=== PATIENT | female | born 1955 ===

== ENCOUNTER 2021-02-05 21:59 | Inpatient (IN) | payer MEDICARE, OTHER ==
[~2021-02-05] VITALS: Ht 160 cm; Wt 63.0 kg
[~2021-02-05 21:59] MED LIST: IVERMECTIN3 MG PO
[2021-02-05 22:59] VITALS: BP 129/64
[2021-02-05 23:23] LABS: BASOPHILS 0.1 % (0-2); EOSINOPHILS 0 % (0-7); HEMOGLOBIN 13.2 g/dL (12-16); LYMPHOCYTES 6.8 % (15-50); MCH 30.4 pg (26.0-34.0); MCHC 33.9 g/dL (31.0-37.0); MCV 89.7 fL (80.0-100.0); MEAN PLATELET VOLUME 9.2 fL (7.4-10.4); MONOCYTES 5.3 % (2-11); NEUTROPHILS 87.8 % (40-80); PLATELET COUNT 202 10x3/uL (130-400); RBC 4.34 10x6/uL (4.00-5.40); RDW 13.1 % (11.5-14.5); WBC 12.4 10x3/uL (4.8-10.8)
[2021-02-05 23:32] LABS: CALC OSMOLALITY 274 mosm/kg (275-300); CALCIUM 8.9 mg/dL (8.5-10.1); CARBON DIOXIDE 23.4 mmol/L (21.0-32.0); CHLORIDE - SERUM 101 mmol/L (98-107); CREATININE - SERUM 1.1 mg/dL (0.6-1.3); GLUCOSE 133 mg/dL (74-106); POTASSIUM - SERUM 4.1 mmol/L (3.5-5.1); SODIUM 135 mmol/L (136-145); UREA NITROGEN 22 mg/dL (7-18); eGFR NON AFRICAN AMERICAN 52 mL/min (90-120)
[2021-02-05 23:48] LABS: ALBUMIN 2.8 g/dL (3.4-5.0); ALKALINE PHOSPHATASE 107 U/L (30-120); ALT (SGPT) 47 U/L (10-68); BILIRUBIN - TOTAL 0.48 mg/dL (0.2-1.3); CKMB 3.1 U/L (0.0-3.6); CREATINE KINASE 740 UL (21-215); PRO BNP 507 pg/mL (0-125); PROTEIN - SERUM 7.1 g/dL (6.4-8.2)
[2021-02-05 23:49] LABS: TROPONIN-I < 0.017 ng/mL (0.000-0.060)
[2021-02-05 23:55] LABS: SARS-CoV-2 ANTIGEN NEGATIVE- SARS-COV-2 (NEGATIVE)
[2021-02-06] VITALS (8 sets, daily range): BP systolic 110–142; BP diastolic 46–67; BMI 24.6
--- NOTE | 2021-02-06 05:07 | NUR ---
REPORT HANDED OFF FROM TIA MUÑOZ AT THIS TIME.
--- NOTE | 2021-02-06 08:00 | NUR ---
Arrived to unit from ER via w/c in stable condition accompanied by hospital staff, oriented to unit, oriented to room, oriented to bed controls/call light/TV, IV is a triple lumen subclavian central line, line is patent and pulls blood with every port, flushed with sterile saline every shift without difficulty observed, call light/phone/water within reach, no s/s of acute distress observed.
[2021-02-06] MEDS ORDERED: SYMBICORT 80-10.2 GM INH (11:15)
[2021-02-06] MEDS ORDERED: SYNTHROID75 MCG PO (11:16)
[2021-02-06] MEDS ORDERED: VENTOLIN HFA [SP8 GM INH (11:18)
[2021-02-06] MEDS ORDERED: DECADRON4 MG PO (11:20)
[2021-02-06] MEDS ORDERED: DOXYCYCLINE HY100 M2 PO (11:21)
--- NOTE | 2021-02-06 14:20 | NUR ---
[facility] faxed PCR test from yesterday showing pt is + for COVID, notified respiratory, Dr. Flores, and Dr. Nam.
[2021-02-06 17:58] LABS: C-REACTIVE PROTEIN 25.6 mg/dL (0.0-0.9)
--- NOTE | 2021-02-06 19:45 | NUR ---
REPORT RECEIVED. PATIENT IS AAOX4, LYING IN BED ON LEFT SIDE. NO S/S OF DISTRESS OBSERVED, RR EVEN AND UNLABORED ON 4L O2 VIA NC. PIV TO LT FA, SL AND LT WRIST, SL. PATIENT DENIES NEEDS AT THIS TIME. CL IN REACH, BED LOCKED AND LOWERED. COVID PRECAUTIONS MAINTAINED. WILL CPOC.
--- NOTE | 2021-02-06 20:35 | NUR ---
PATIENT TEMP 102.9 PRN TYLENO ADMINISTERED PER ORDERS.
[2021-02-07] VITALS: BP 110/58
[2021-02-07 04:00] VITALS: BP 152/56
--- NOTE | 2021-02-07 04:55 | NUR ---
I have reviewed this patient and I concur with the Shift Assessment completed by the Licensed Practical Nurse today this shift.
--- NOTE | 2021-02-07 05:28 | NUR ---
PATIENT TEMP 101.1 ADMINISTERED PRN TYLENOL PER ORDERS
[2021-02-07 06:17] LABS: BASOPHILS 0.1 % (0-2); EOSINOPHILS 0 % (0-7); HEMATOCRIT 37.7 % (36.0-48.0); HEMOGLOBIN 12.8 g/dL (12-16); LYMPHOCYTES 5.2 % (15-50); MCH 30.5 pg (26.0-34.0); MCHC 33.9 g/dL (31.0-37.0); MEAN PLATELET VOLUME 9.1 fL (7.4-10.4); MONOCYTES 1.9 % (2-11); NEUTROPHILS 92.8 % (40-80); PLATELET COUNT 238 10x3/uL (130-400); RDW 13.4 % (11.5-14.5); WBC 13.6 10x3/uL (4.8-10.8)
--- NOTE | 2021-02-07 06:23 | NUR ---
CALLED FOR UPDATE, UPDATE GIVEN.
[2021-02-07 06:55] LABS: ANION GAP 14.7 mmol/L (8-16); CALCIUM 8.7 mg/dL (8.5-10.1); CARBON DIOXIDE 23.3 mmol/L (21.0-32.0); CREATININE - SERUM 0.9 mg/dL (0.6-1.3); MAGNESIUM - SERUM 1.8 mg/dL (1.8-2.4); PHOSPHOROUS 2.2 mg/dL (2.5-4.9)
--- NOTE | 2021-02-07 07:20 | NUR ---
Lying in bed, awake/alert/oriented, T/R self ad cami, cont of B/B with BRPs per self ad cami, denies pain/other discomfort at this time, call light/phone/water within reach, no s/s of acute distress observed.
[2021-02-07 08:27] VITALS: BP 126/62
[2021-02-07] MEDS ORDERED: LEVOTHYROXINE75 MCG PO (10:29)
[2021-02-07] MEDS ORDERED: CRESTOR10 MG PO (10:29)
[2021-02-07 11:45] VITALS: BP 114/65
--- NOTE | 2021-02-07 12:19 | NUR ---
concrete engineering technician Martha called with blood culture results stating gram + cocci in clusters, reported results to infection control and Dr. Nam; pt already on Covid Isolation, added Contact Isolation at this time.
--- NOTE | 2021-02-07 14:52 | NUR ---
Pt medication and spouse's medication picked up at this time by family friend to return it to their home.
[2021-02-07 15:56] VITALS: BP 135/71
--- NOTE | 2021-02-07 19:00 | NUR ---
PT SITTING IN BED, RR EVEN AND UNLABORED. INCENTIVE SPRIOMETER IN HAND, NO S/S OF DISTRESS. DENIES NEEDS. CL IN REACH. WILL CTM.
[2021-02-07 20:00] VITALS: BP 129/72
[2021-02-08] VITALS: BP 113/51
--- NOTE | 2021-02-08 02:29 | NUR ---
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 PT REMAINS ON 6L HF, NO ACUTE DISTRESS. NO BM FOR SAMPLE. DENIES NEEDS. WILL CTM.
[2021-02-08 04:00] VITALS: BP 128/65
--- NOTE | 2021-02-08 05:15 | NUR ---
PIVS FROM LEFT FA AND LEFT WRIST D/C WITH CATHETER TIP INTACT. NEW 20G PIV SITED TO RIGHT FA X1 ATTEMPT. ABT CONTINUES TO INFUSE PER ORDER. CL IN REACH,
--- NOTE | 2021-02-08 05:57 | NUR ---
NO C/O OR CONCERNS DURING THE NIGHT, FREQUENT COUGH BUT UNPRODUCTIVE. NO DISTRESS. NO BM, WILL CTM
--- NOTE | 2021-02-08 06:23 | NUR ---
PTS UPDATED. NO FURTHER QUESTIONS.
[2021-02-08 06:46] LABS: CREATININE - SERUM 0.9 mg/dL (0.6-1.3)
[2021-02-08 08:13] VITALS: BP 128/55
[2021-02-08 12:00] LABS: BASOPHILS 0.2 % (0-2); EOSINOPHILS 0 % (0-7); HEMATOCRIT 37.7 % (36.0-48.0); HEMOGLOBIN 12.4 g/dL (12-16); LYMPHOCYTES 5.7 % (15-50); MCH 29.8 pg (26.0-34.0); MCHC 32.8 g/dL (31.0-37.0); MCV 90.8 fL (80.0-100.0); MEAN PLATELET VOLUME 9.3 fL (7.4-10.4); MONOCYTES 5.3 % (2-11); NEUTROPHILS 88.8 % (40-80); PLATELET COUNT 273 10x3/uL (130-400); RBC 4.15 10x6/uL (4.00-5.40); RDW 13.3 % (11.5-14.5); WBC 12.8 10x3/uL (4.8-10.8)
[2021-02-08 12:10] VITALS: BP 112/50
[2021-02-08 12:28] LABS: ANION GAP 15.6 mmol/L (8-16); CALCIUM 8.8 mg/dL (8.5-10.1); CARBON DIOXIDE 22.6 mmol/L (21.0-32.0); POTASSIUM - SERUM 4.2 mmol/L (3.5-5.1)
--- NOTE | 2021-02-08 12:50 | NUR ---
Spouse called with concern for pt anxiety and requested medication to help her.
--- NOTE | 2021-02-08 12:55 | NUR ---
Left message for Dr. Nam r/t spouse request for anxiety med for pt, waiting for return call.
--- NOTE | 2021-02-08 14:20 | NUR ---
Again left message for Dr. Nam r/t request for anxiety meds for pt.
--- NOTE | 2021-02-08 14:23 | NUR ---
Paged Dr. Johnson on the advice of House Superviser Lesly, waiting for return call
--- NOTE | 2021-02-08 14:27 | NUR ---
Dr. Elizabeth merritt order for Ativan 0.5 mg IV BIDPRN anxiety.
--- NOTE | 2021-02-08 14:55 | NUR ---
Pt refused Ativan.
[2021-02-08 15:24] VITALS: BP 117/64
[2021-02-08 20:15] VITALS: BP 109/48
--- NOTE | 2021-02-09 00:49 | NUR ---
PT RESTING WITH BIPAP ON, [employer] UPDATED ON PT. NO DISTRESS. CL IN REACH.
[2021-02-09 01:26] VITALS: BP 107/68
--- NOTE | 2021-02-09 03:17 | NUR ---
PT HAS HAD BIPAP ON SINCE 2099. RR RATE REMAINS BETWEEN 21-30 WHEN RESTING. ENCOURAGED BEDREST, PROVIDED BSC. PT FATIGUED, REMAINS A&O.
[2021-02-09 05:35] LABS: BASOPHILS 0.1 % (0-2); EOSINOPHILS 0 % (0-7); HEMATOCRIT 34.9 % (36.0-48.0); HEMOGLOBIN 11.8 g/dL (12-16); LYMPHOCYTES 7.3 % (15-50); MCH 30.5 pg (26.0-34.0); MCHC 33.8 g/dL (31.0-37.0); MCV 90.2 fL (80.0-100.0); MEAN PLATELET VOLUME 8.9 fL (7.4-10.4); MONOCYTES 8.2 % (2-11); NEUTROPHILS 84.4 % (40-80); PLATELET COUNT 307 10x3/uL (130-400); RBC 3.87 10x6/uL (4.00-5.40); RDW 13.2 % (11.5-14.5); WBC 11.1 10x3/uL (4.8-10.8)
[2021-02-09 05:47] LABS: ALT (SGPT) 46 U/L (10-68); CALC OSMOLALITY 282 mosm/kg (275-300); CALCIUM 8.2 mg/dL (8.5-10.1); CARBON DIOXIDE 25.2 mmol/L (21.0-32.0); CHLORIDE - SERUM 106 mmol/L (98-107); CREATININE - SERUM 0.8 mg/dL (0.6-1.3); GLUCOSE 109 mg/dL (74-106); SODIUM 139 mmol/L (136-145); UREA NITROGEN 23 mg/dL (7-18); eGFR NON AFRICAN AMERICAN 75 mL/min (90-120)
[2021-02-09 06:30] VITALS: BP 109/54
--- NOTE | 2021-02-09 07:10 | NUR ---
Lying in bed with HOB elevated, awake/alert/oriented, cont of B/B with use of BSC ad cami, denies pain/other discomfort at this time, call light/phone/water within reach, no s/s of acute distress observed.
--- NOTE | 2021-02-09 09:00 | NUR ---
Placed on BIPAP at this time d/t saturation level dropping.
[2021-02-09 09:15] VITALS: BP 126/57
--- NOTE | 2021-02-09 12:00 | NUR ---
Took off BIPAP, placed on 12HF
[2021-02-09 12:01] VITALS: BP 126/68
[2021-02-09 12:06] VITALS: Ht 160 cm; Wt 63.0 kg
--- NOTE | 2021-02-09 12:30 | NUR ---
recked O2 sat is at 92-93, not turned at this time.
--- NOTE | 2021-02-09 13:30 | NUR ---
Recked O2 sat is 94%, did not turn down O2 at this time.
[2021-02-09 19:14] VITALS: BP 133/52
[2021-02-10 00:43] VITALS: BP 135/57
--- NOTE | 2021-02-10 03:28 | NUR ---
I have reviewed this patient and I concur with the Shift Assessment completed by the Licensed Practical Nurse today this shift.
[2021-02-10 04:00] VITALS: BP 140/70
[2021-02-10 05:15] LABS: BASOPHILS 0.2 % (0-2); EOSINOPHILS 0.1 % (0-7); HEMATOCRIT 35.8 % (36.0-48.0); HEMOGLOBIN 12.2 g/dL (12-16); LYMPHOCYTES 6.4 % (15-50); MCH 30.7 pg (26.0-34.0); MCHC 34.1 g/dL (31.0-37.0); MEAN PLATELET VOLUME 8.4 fL (7.4-10.4); MONOCYTES 5.5 % (2-11); NEUTROPHILS 87.8 % (40-80); PLATELET COUNT 324 10x3/uL (130-400); RBC 3.97 10x6/uL (4.00-5.40); RDW 13.4 % (11.5-14.5); WBC 9.8 10x3/uL (4.8-10.8)
[2021-02-10 05:30] LABS: CREATININE - SERUM 0.8 mg/dL (0.6-1.3)
--- NOTE | 2021-02-10 07:00 | NUR ---
RECIEVED REPORT. ASSUMED CARE OF PATEINT. PATIENT REMAINS IN DROPLET ISOLATION FOR POSITIVE COVID.
[2021-02-10 07:25] VITALS: BP 142/52
--- NOTE | 2021-02-10 07:41 | NUR ---
PATIENT OFF BIPAP, ON HFNC AT 15L TO AMBULATE TO RESTROOM AND BACK TO BED.
--- NOTE | 2021-02-10 08:08 | NUR ---
ATTEMPTED TO CALL PATIENTS SPOUSE BACK AT [phone], LISTED ON CHART CONTACTS, AND AFTER 4 RINGS RECEIVED VOICEMAIL. NO VOICEMAIL LEFT. PATIENTS SPOUSE CALLED AND ASKED TO BE CALLED BACK HE HAD SOME QUESTIONS, NO ANSWER WHEN CALLED BACK. WINDROWER OPERATOR INFORMED.
--- NOTE | 2021-02-10 09:26 | NUR ---
PHONE NUMBER [phone] IS THE NUMBER! PLEASE CALL THIS NUMBER. THE NUMBER LISTED ON THE CHART IS THE PATIENTS CELL PHONE!
[2021-02-10 11:59] VITALS: BP 130/50
[2021-02-10 15:55] VITALS: BP 135/65
--- NOTE | 2021-02-10 18:34 | NUR ---
PT CALLED TO CHECK ON HER, PT RESTING WITH BIPAP ON. NO DISTRESS.
--- NOTE | 2021-02-10 19:52 | NUR ---
RECEIVED REPORT, WILL ASSUME CARE OF PT, PT ON H, PT DENIES ANY NEEDS AT THIS TIME, BED IS LOW, SRX2, CALL LIGHT IN REACH, WILL CONTINUE PLAN OF CARE
[2021-02-10 20:41] VITALS: BP 148/72
--- NOTE | 2021-02-10 22:17 | NUR ---
APLLIED BIPAP AT THIS TIME 07/30 10 60% KAE APPLICATION WELL CURRENT SPO2 93% AND HOLDING
[2021-02-11 02:23] VITALS: BP 132/61
[2021-02-11 06:14] VITALS: BP 136/71
[2021-02-11 06:17] LABS: BASOPHILS 0.1 % (0-2); EOSINOPHILS 0.2 % (0-7); HEMATOCRIT 33.6 % (36.0-48.0); HEMOGLOBIN 11.4 g/dL (12-16); LYMPHOCYTES 7.7 % (15-50); MCH 30.3 pg (26.0-34.0); MCHC 33.9 g/dL (31.0-37.0); MCV 89.4 fL (80.0-100.0); MONOCYTES 5.5 % (2-11); NEUTROPHILS 86.5 % (40-80); PLATELET COUNT 299 10x3/uL (130-400); RBC 3.76 10x6/uL (4.00-5.40); RDW 13.6 % (11.5-14.5); WBC 8.1 10x3/uL (4.8-10.8)
--- NOTE | 2021-02-11 07:00 | NUR ---
RECEIVED REPORT. ASSUMED CARE OF PATIENT. PATIENT REMAINS IN DROPLET ISOLATION FOR POSITIVE COVID.
[2021-02-11 07:45] VITALS: BP 154/61
[2021-02-11 11:23] VITALS: BP 115/61
[2021-02-11 15:11] VITALS: BP 125/58
--- NOTE | 2021-02-11 16:52 | NUR ---
PATIENT REFUSED PM MEAL, HER SPOUSE BROUGHT HER FAVORITES IN FROM [facility].
--- NOTE | 2021-02-11 19:08 | NUR ---
REPORT RECEIVED. PATIENT IS AAOX4, LYING IN SEMI-FOWLERS POSITION. NO S/S OF DISTRESS OBSERVED, RR EVEN AND UNLABORED ON 15L HFNC. PIV TO RT FA, PATENT, INFUSING NS @ KVO. PATIENT DENIES NEEDS AT THIS TIME. CL IN REACH, BED LOCKED AND LOWERED. COVID PRECAUTIONS FOLLOWED. WILL CPOC.
[2021-02-11 20:00] VITALS: BP 124/58
--- NOTE | 2021-02-11 22:38 | NUR ---
RT PLACED PATIENT ON BIPAP AND SHORTLY AFTER SHE STATED IT DIDN'T FEEL RIGHT. STAN RT WENT TO PATIENTS ROOM AND MADE ADJUSTMENTS. PATIENT HAS NO FURTHER COMPLAINTS.
--- NOTE | 2021-02-11 22:51 | NUR ---
APLLIED BIPAP PT TOLERATED WELL
[2021-02-12] VITALS: BP 126/61
--- NOTE | 2021-02-12 00:47 | NUR ---
PATIENT WANTED OFF BIPAP. BACK ON 15L HFNC.
--- NOTE | 2021-02-12 03:57 | NUR ---
PIV TO RT FA INFILTRATED, REDNESS AND TENDERNESS NOTED. DC'D WITH CATH TIP INTACT. NEW 20G PIV INSERTED TO RT HAND, PATIENT TOLERATED WELL. IV FLUIDS AND ABX RESTARTED.
[2021-02-12 04:00] VITALS: BP 132/64
--- NOTE | 2021-02-12 04:21 | NUR ---
PATIENT C/O PAIN AT IV SITE. SLOWED AZITHROMYCIN DOWN AND PATIENT STATES IT STILL THOMPSON. TURNED OFF ABX AND FLUSHED PIV. PATIENT STATES IT DOESN'T HURT ANYMORE. RESTARTED NS @ KVO, PATIENT TOLERATING WELL.
--- NOTE | 2021-02-12 06:09 | NUR ---
CALLED FOR UPDATE, UPDATE GIVEN.
[2021-02-12 06:34] LABS: BASOPHILS 0.1 % (0-2); EOSINOPHILS 0.2 % (0-7); HEMATOCRIT 36.6 % (36.0-48.0); HEMOGLOBIN 12.2 g/dL (12-16); LYMPHOCYTES 4.8 % (15-50); MCH 30.3 pg (26.0-34.0); MCHC 33.3 g/dL (31.0-37.0); MCV 90.9 fL (80.0-100.0); MEAN PLATELET VOLUME 8.7 fL (7.4-10.4); MONOCYTES 3.3 % (2-11); NEUTROPHILS 91.6 % (40-80); RBC 4.03 10x6/uL (4.00-5.40); RDW 13.1 % (11.5-14.5)
[2021-02-12 06:36] LABS: WBC 10.6 10x3/uL (4.8-10.8)
[2021-02-12 06:37] LABS: PLATELET COUNT 402 10x3/uL (130-400)
--- NOTE | 2021-02-12 07:00 | NUR ---
RECEIVED REPORT. ASSUMED CARE OF PATIENT. PATIENT REMAINS IN DROPLET ISOLATION FOR POSITIVE COVID. SR ON TELEMETRY, RATE 69.
[2021-02-12 07:44] VITALS: BP 123/66
--- NOTE | 2021-02-12 09:31 | NUR ---
PATIENT PLACED BACK ON BIPAP AT THIS TIME. O2 SATS ON 15L/HFNC 91-92% AT BEST. O2 SATS 95% AT THIS TIME WHILE ON BIPAP. PATIETN DENIES ANY OTHER NEEDS.
[2021-02-12 10:53] VITALS: BP 114/64
--- NOTE | 2021-02-12 12:39 | NUR ---
Nutrition Follow-up: Pt in droplet isolation; covid (+). Nursing reports that pt does not care for the food provided by the hospital but that she has been eating food that her family brings. Soft BMs. Diet: Regular No new wt; last wt: 139# (02/06) Labs reviewed Meds noted: Marlee Castillo Decadron -Encourage PO intake and honor food preferences; asked kitchen to call pt for menu selections. -Offer nutrition supplements. -Need new wt; daily wts ordered. -RD will follow up within 4 days.
[2021-02-12 15:28] VITALS: BP 122/65
--- NOTE | 2021-02-12 17:50 | NUR ---
PATIENTS CALLED TO CHECK ON HER, NO CHANGE OF CONDITION REPORTED.
[2021-02-12 20:00] VITALS: BP 118/57
[2021-02-13] VITALS: BP 118/55
--- NOTE | 2021-02-13 03:29 | NUR ---
I have reviewed this patient and I concur with the Shift Assessment completed by the Licensed Practical Nurse today this shift.
[2021-02-13 04:00] VITALS: BP 120/58
--- NOTE | 2021-02-13 06:17 | NUR ---
CALLED FOR UPDATE, UPDATE GIVEN.
--- NOTE | 2021-02-13 07:30 | NUR ---
Sitting up in bed, awake/alert/oriented, T/R self ad cami, cont of B/B with use of BSC per self ad cami, denies pain/other discomfort at this time, call light/phone/water within reach, no s/s of acute distress observed.
[2021-02-13 08:13] LABS: HEMATOCRIT 37.3 % (36.0-48.0); HEMOGLOBIN 12.3 g/dL (12-16); MCH 29.9 pg (26.0-34.0); MCHC 32.9 g/dL (31.0-37.0); MCV 90.9 fL (80.0-100.0); MEAN PLATELET VOLUME 8.7 fL (7.4-10.4); PLATELET COUNT 396 10x3/uL (130-400); RBC 4.11 10x6/uL (4.00-5.40); RDW 13.1 % (11.5-14.5); WBC 10.1 10x3/uL (4.8-10.8)
[2021-02-13 08:16] VITALS: BP 112/51
[2021-02-13 11:54] VITALS: BP 101/53
[2021-02-13 14:06] LABS: LYMPHOCYTES 7 % (15-50); MONOCYTES 6 % (2-11); NEUTROPHILS 85 % (40-80); PLATELET ESTIMATE NORMAL
[2021-02-13 15:53] VITALS: BP 105/49
[2021-02-13 20:00] VITALS: BP 116/61
--- NOTE | 2021-02-13 20:30 | NUR ---
PT IN BED, AAO X 4, RESP EVEN AND UNLABORED, NO DISTRESS NOTED, CONTINOUS PULSE OX 94% ON 15 LITERS HIGH FLOW. CL IN REACH, SR UP X 2.
[2021-02-14] VITALS: BP 122/58
--- NOTE | 2021-02-14 02:31 | NUR ---
I have reviewed this patient and I concur with the Shift Assessment completed by the Licensed Practical Nurse today this shift.
[2021-02-14 04:00] VITALS: BP 138/67
[2021-02-14 05:57] LABS: BASOPHILS 0.2 % (0-2); EOSINOPHILS 0.3 % (0-7); HEMATOCRIT 36.3 % (36.0-48.0); HEMOGLOBIN 12.1 g/dL (12-16); LYMPHOCYTES 6.6 % (15-50); MCH 30.2 pg (26.0-34.0); MCHC 33.3 g/dL (31.0-37.0); MCV 90.6 fL (80.0-100.0); MEAN PLATELET VOLUME 8.6 fL (7.4-10.4); MONOCYTES 5.5 % (2-11); NEUTROPHILS 87.4 % (40-80); PLATELET COUNT 399 10x3/uL (130-400); RBC 4.01 10x6/uL (4.00-5.40); RDW 12.8 % (11.5-14.5); WBC 8.9 10x3/uL (4.8-10.8)
[2021-02-14 06:48] LABS: C-REACTIVE PROTEIN 2.1 mg/dL (0.0-0.9); CREATININE - SERUM 0.8 mg/dL (0.6-1.3)
--- NOTE | 2021-02-14 07:30 | NUR ---
Lying in bed, awake/alert/oriented, T/R self ad cami, cont of B/B with use of BSC per self ad cami, denies pain/other discomfort at this time, call light/phone/water within reach, no s/s of acute distress observed.
[2021-02-14 07:44] VITALS: BP 127/67
[2021-02-14 08:19] LABS: CALC OSMOLALITY 283 mosm/kg (275-300); CALCIUM 8.1 mg/dL (8.5-10.1); CARBON DIOXIDE 23.3 mmol/L (21.0-32.0); CHLORIDE - SERUM 108 mmol/L (98-107); CREATININE - SERUM 0.8 mg/dL (0.6-1.3); GLUCOSE 111 mg/dL (74-106); POTASSIUM - SERUM 4.4 mmol/L (3.5-5.1); SODIUM 141 mmol/L (136-145); UREA NITROGEN 18 mg/dL (7-18); eGFR NON AFRICAN AMERICAN 75 mL/min (90-120)
[2021-02-14 11:10] VITALS: BP 109/61
[2021-02-14 15:37] VITALS: BP 111/48
[2021-02-14 23:21] VITALS: BP 113/58
[2021-02-15 06:49] LABS: HEMATOCRIT 36.3 % (36.0-48.0); MCH 30.2 pg (26.0-34.0); MCHC 33.1 g/dL (31.0-37.0); MCV 91.3 fL (80.0-100.0); MEAN PLATELET VOLUME 9.2 fL (7.4-10.4); PLATELET COUNT 350 10x3/uL (130-400); RBC 3.97 10x6/uL (4.00-5.40); WBC 11.1 10x3/uL (4.8-10.8)
[2021-02-15 06:53] LABS: CALC OSMOLALITY 278 mosm/kg (275-300); CALCIUM 8.3 mg/dL (8.5-10.1); CARBON DIOXIDE 22.7 mmol/L (21.0-32.0); CHLORIDE - SERUM 108 mmol/L (98-107); CREATININE - SERUM 0.8 mg/dL (0.6-1.3); GLUCOSE 78 mg/dL (74-106); POTASSIUM - SERUM 4.1 mmol/L (3.5-5.1); SODIUM 139 mmol/L (136-145); UREA NITROGEN 19 mg/dL (7-18); eGFR NON AFRICAN AMERICAN 75 mL/min (90-120)
--- NOTE | 2021-02-15 07:10 | NUR ---
Lying in bed, awake/alert/oriented, T/R self ad cami, cont of B/B with BSC per self ad cami, denies pain/other discomfort at this time, call light/phone/water within reach, no s/s of acute distress observed.
[2021-02-15 09:00] VITALS: BP 112/51
[2021-02-15 09:24] LABS: CRENATED CELLS OCC; EOSINOPHILS 2 % (0-7); LYMPHOCYTES 6 % (15-50); MONOCYTES 12 % (2-11); NEUTROPHILS 78 % (40-80); PLATELET ESTIMATE NORMAL; SMUDGE CELLS OCC
--- NOTE | 2021-02-15 09:57 | NUR ---
Nutrition Reassessment/Follow-up: Pt in droplet isolation; covid (+). Overall poor PO intake reported in chart, although nursing reports family continues to bring food from outside. Diet: Regular No new wt; last wt: 139# (02/09) Labs noted: Ca 8.3 Meds noted: zinc sulfate, vit B1, vit C, vit D, Decadron, Pepcid -Nutrition needs, Dx, goals unchanged since initial assessment. -Encourage PO intake and honor food preferences within diet restrictions. -Offer nutrition supplements. -Need new wt. -RD will follow up within 4-5 days.
[2021-02-15 12:00] VITALS: BP 150/72
[2021-02-16 00:11] VITALS: BP 121/68
--- NOTE | 2021-02-16 01:25 | NUR ---
DR PRADO CALLED TO CHECK IN ON PT. SHE INFORMED THIS NURSE THAT PT IS ALLERGIC TO FLONASE. ADDED TO ALLERGIES AND DC'D FROM OCT. PT WAS SWITCHED ROOMS DUE TO AC BLOWING HOT AIR FOR SEVERAL DAYS. PT MOVED FROM 2102 TO 2100 WHERE SHE IS MUCH MORE COMFORTABLE AND ABLE TO BREATH BETTER. PT RELIEVED DR. MONSALVE IS ON DUTY. DR. MONSALVE WEENING PT O2 DOWN. PT CURRENTLY AT 9L HF AT 98%. VSS. RR E/U. NO S/S OF DISTRESS AT THIS TIME. PT DENIES PAIN OR ANY FURTHER NEEDS AT THIS TIME. BED LOW CALL LIGHT WITHIN REACH. WILL CONTINUE TO MONITOR PT AND O2.
--- NOTE | 2021-02-16 06:28 | NUR ---
TELEMETRY CALLED AND REPORTED PT WAS IN UNCONTROLLED A-FIBB 140'S. EKG DONE AND READS 108 AFIBB. SAÚL TRACY PAGED AND CARDIAC CONSULT PUT IN. VSS. RR E/U. NO S/S OF DISTRESS. WILL CONTINUE TO MONITOR.
[2021-02-16 09:00] VITALS: BP 110/53
[2021-02-16 16:00] VITALS: BP 122/56
--- NOTE | 2021-02-16 20:11 | NUR ---
RECIEVED UP IN BED WITH EYES OPEN AND TV ON. A/O X4. UP AD SCARLETT TO BEDSIDE COMMODE. NO IV AT THIS TIME. DENIES ANY NEEDS.
[2021-02-17 02:05] VITALS: BP 117/59
--- NOTE | 2021-02-17 07:00 | NUR ---
RECEIVED REPORT. ASSUMED CARE OF PATIENT. PATIENT REMAINS IN DROPLET ISOLATION FOR COVID POSITIVE. PATIENTS SPOUSE, MADI, CALLED TO CHECK ON PATIENT AND WILL BRING HER LUNCH TODAY AT NOON. NO DISTRESS.
[2021-02-17 09:11] VITALS: BP 104/47
[2021-02-17 16:39] VITALS: BP 106/55
--- NOTE | 2021-02-17 19:00 | NUR ---
REPORT RECEIVED. PATIENT IS AAOX4, SITTING UP IN BED. NO S/S OF DISTRESS OBSERVED. RR EVEN AND UNLABORED ON 3L HFNC. PIV TO LT HAND, PATENT, INFUSING @ KVO. PATIENT DENIES NEEDS AT THIS TIME. CL IN REACH, BED LOCKED AND LOWERED. DROPLET PRECAUTIONS MAINTAINED. WILL CPOC.
[2021-02-17 20:59] VITALS: BP 111/56
[2021-02-18] VITALS: BP 118/59
[2021-02-18 04:30] VITALS: BP 122/59
--- NOTE | 2021-02-18 06:23 | NUR ---
PATIENT CALLED FOR UPDATE, UPDATE GIVEN.
--- NOTE | 2021-02-18 07:00 | NUR ---
RECEIVED REPORT. ASSUMED CARE OF PATIENT. PATIENT REMAINS IN DROPLET ISOLATION FOR POSITIVE COVID.
[2021-02-18 07:06] LABS: BASOPHILS 0.7 % (0-2); EOSINOPHILS 0.3 % (0-7); HEMATOCRIT 33.4 % (36.0-48.0); HEMOGLOBIN 11.2 g/dL (12-16); LYMPHOCYTES 11.3 % (15-50); MCH 30.9 pg (26.0-34.0); MCHC 33.5 g/dL (31.0-37.0); MCV 92.4 fL (80.0-100.0); MEAN PLATELET VOLUME 8.9 fL (7.4-10.4); MONOCYTES 7.2 % (2-11); NEUTROPHILS 80.5 % (40-80); RBC 3.62 10x6/uL (4.00-5.40); RDW 13.4 % (11.5-14.5); WBC 10.9 10x3/uL (4.8-10.8)
[2021-02-18 07:07] LABS: PLATELET COUNT 240 10x3/uL (130-400)
[2021-02-18 07:35] LABS: CREATININE - SERUM 0.7 mg/dL (0.6-1.3)
[2021-02-18 09:14] LABS: CALC OSMOLALITY 286 mosm/kg (275-300); CHLORIDE - SERUM 111 mmol/L (98-107); GLUCOSE 91 mg/dL (74-106); POTASSIUM - SERUM 3.9 mmol/L (3.5-5.1); SODIUM 144 mmol/L (136-145); UREA NITROGEN 13 mg/dL (7-18)
--- NOTE | 2021-02-18 11:00 | NUR ---
WALK TEST COMPLETED BY RESP THERAPY. PATIENT DESATS TO LOW 84% DURING AMBULATION WHILE ON ROOM. PATIENT WILL REQUIRE SUPPLEMENTAL O2 AT DISCHARGE.
[2021-02-18 13:03] VITALS: BP 102/46
--- NOTE | 2021-02-18 15:39 | NUR ---
PATIENT CURRENTLY ON 2L/MIN, O2 SATS 97-98%.
--- NOTE | 2021-02-18 20:00 | NUR ---
INITIAL ROUNDS AND ASSSESSMENT COMPLETED. PT RESTING IN BED. POSSIBLE D/C HOME TOMORROW. PT WITH FLAT AFFECT. TIRED IN APPEARANCE. NS @ KVO FOR ABT TO LEFT HAND. O2 @ 2L/NC WITH NONLABORED/SHALLOW RESPIRATIONS. SB/SR ON TELEMETRY. VOICING NOT PAIN OR DISCOMFORT. CALL LIGHT IN REACH.
[2021-02-18 20:39] VITALS: BP 106/51
[2021-02-19 01:57] VITALS: BP 107/57
[2021-02-19 05:52] VITALS: BP 123/60
--- NOTE | 2021-02-19 07:00 | NUR ---
RECEIVED REPORT. ASSUMED CARE OF PATIENT. PATIENT REMAINS IN DROPLET ISOLATION FOR POSITIVE COVID. PATIENT EXCITED SHE SHOULD DISCHARGE TO HOME TODAY.
[2021-02-19 08:16] VITALS: BP 121/58
[2021-02-19 12:04] VITALS: BP 110/51
[2021-02-19] MEDS ORDERED: ELIQUIS2.5 MG PO (16:55)
[2021-02-19] MEDS ORDERED: Zinc SULFATE PO (16:56)
[2021-02-19] MEDS ORDERED: DULERA 200 MCG8.8 GM INH (16:56)
[2021-02-19] MEDS ORDERED: VITAMIN B-1100 M1 PO (16:57)
[2021-02-19] MEDS ORDERED: VITAMIN D325 MC1 PO (16:57)
[2021-02-19] MEDS ORDERED: MELATONIN 3 MG1 TAB PO (16:57)
[2021-02-19] MEDS ORDERED: VITAMIN C PO (16:57)
--- NOTE | 2021-02-19 17:12 | NUR ---
PER , NO ABXs NEEDED AT DISCHARGE.
--- NOTE | 2021-02-19 18:32 | NUR ---
1730 20 GAUGE IV REMOVED FROM RIGHT AND LEFT HAND. CATHETER TIP INTACT TO BOTH IVs D/Cd.NO BLEEDING FROM SITE. 2X2 GAUZE APPLIED AND SECURED WITH BANDAIDS. TOLERATED IV REMOVAL WELL PATIENT IS BEING DISCHARGED TO HOME. DISCHARGE INSTRUCTIONS PROVIDED TO PATIENT AND HER X 2. [facility] PROVIDED PORTABLE OXYGEN UNIT AND PATIENT DISCHARGED TO HOME WITH PORTABLE TANK. [facility] TO MEET PATIENT AT HER HOME TO DELIVER THE CONCENTRATOR. PATIENT DISCHARGED TO HOME WITH HER SPOUSE IN STABLE CONDITION WITH OXYGEN. PATIENT DISCHARGED TO HOME WITH ALL PERSONAL BELONGINGS. NO DISTRESS UPON DISCHARGE.
== END 2021-02-19 18:00 | disposition home or self-care (01) | DRG 177 ==
LOC: D.ER 21:59 → D.M2 02-06 04:08 → D.EDHOLD 02-06 04:08 → D.M2 02-06 07:17
PROVIDERS: Family Medicine; Internal Medicine Pulmonary Disease; Legal Medicine; ADMIT Emergency Medicine; ATTEND Emergency Medicine
PROC: XW033E5 Introduction of Remdesivir Anti-infective into Peripheral Vein, Percutaneous Approach, New Technology Group 5 (ICD-10-PCS; principal; 2021-02-06)
DX: U07.1 COVID-19 (principal); J12.82 Pneumonia due to coronavirus disease 2019; J96.01 Acute respiratory failure with hypoxia; G72.81 Critical illness myopathy; R78.81 Bacteremia; E03.9 Hypothyroidism, unspecified; R19.7 Diarrhea, unspecified; A49.02 Methicillin resistant Staphylococcus aureus infection, unspecified site; D64.9 Anemia, unspecified; R53.81 Other malaise